=== PATIENT | male | born 1950 | race Caucasian/White ===

== ENCOUNTER 2018-08-27 07:04 | Emergency (ER) | payer OTHER ==
--- NOTE | 2018-08-27 07:06 | PDOC ---
History of Present Illness - General Chief Complaint: Injury Stated Complaint: LT SHOULDER PAIN Time Seen by Provider: 08/27/18 07:05 - History of Present Illness Initial Comments: 08/27/18 07:15 68yo male with pmhx of anxiety/depression/bph presents ambulatory for eval of L shoulder pain. States he was out walking on the track this morning for exercise when it started to rain. He was walking home to get out of the rain when he tripped on an uneven side walk landing on his R palm and L shoulder. Pt states the fall happened about 45 min prior to arrival. Pt denies head injury. No neck or back pain. Pt ambulated into the ED for eval. Pt denies hip, knee, or ankle/ foot pain. 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 States pain with ROM. Pt with abrasion to palm of R hand. Tetanus is utd. Pt denies barlow. No blurred vision. No weakness. No paresthesias. No cp/sob. No abd pain. No n/v/d. No blood thinners. No other complaints. Pmhx: anxiety, depression, bph Pshx: hernia repair allergies: nkda Past History - Past Medical History Allergies/Adverse Reactions: Allergies Allergy/AdvReac Type Severity Reaction Status Date / Time No Known Allergies Allergy Verified 07/16/14 15:22 Home Medications: Ambulatory Orders Bupropion HCl [Wellbutrin Xl -] 300 mg PO DAILY 05/25/11 Citalopram Hydrobromide [Celexa -] 10 mg PO DAILY 05/25/11 Clonazepam [Klonopin] 1 mg PO BID 05/25/11 Finasteride [Proscar -] 5 mg PO HS 05/25/11 Fluticasone Prop 0.05% Nasal [Flonase -] 1 drop NS DAILY PRN 05/25/11 Tamsulosin HCl [Flomax -] 0.4 mg PO HS 05/25/11 Cholecalciferol (Vitamin D3) [Vitamin D3] 3,000 unit PO DAILY 07/16/14 Folic Acid/Mv,Fe,Min [Centrum Multivitamin Tab Chew] 1 each PO DAILY 07/16/14 [place]-3 Fatty Acids/Fish Oil [Fish Oil 1,000 mg Softgel] 3 each PO DAILY Plant Stanol Wanda [Cholest Off] 2 tab PO BID 07/16/14 Oxycodone HCl/Acetaminophen [Percocet 5-325 mg Tablet] 1 tab PO Q6H PRN #15 tablet MDD 4 tabs 08/27/18 Anemia: No Asthma: No Cancer: No Cardiac Disorders: No CVA: No COPD: No CHF: No Dementia: No Diabetes: No GI Disorders: Yes (POSSIBLE FAMILY H/O COLON CA) Disorders: Yes (BPH) HTN: No Hypercholesterolemia: No Liver Disease: No Seizures: No Thyroid Disease: No - Surgical History Abdominal Surgery: Yes (DOUBLE HERNIA AT 2 Y/O) Appendectomy: No Cardiac Surgery: No Cholecystectomy: No Lung Surgery: No Neurologic Surgery: No Orthopedic Surgery: No - Suicide/Smoking/Psychosocial Hx Smoking History: Never smoked Have you smoked in the past 12 months: No Hx Alcohol Use: No Drug/Substance Use Hx: No Substance Use Type: None Hx Substance Use Treatment: No Review of Systems - Review of Systems Able to Perform ROS?: Yes Is the patient limited [place] proficient: No Constitutional: No: Chills, Fever HEENTM: No: Eye Pain, Blurred Vision, Nose Congestion, Throat Pain Respiratory: No: Cough, Shortness of Breath Cardiac (ROS): No: Chest Pain, Lightheadedness, Palpitations ABD/GI: No: Diarrhea, Nausea, Vomiting, Abdominal cramping : No: Burning, Dysuria Musculoskeletal: Yes: Joint Pain, Muscle Pain, Other (L shoulder pain). No: Back Pain, Neck Pain Integumentary: Yes: Other (abrasion to palm of R hand) All Other Systems: Reviewed and Negative *Physical Exam - Vital Signs 08/27/18 07:21 Selected Entries 08/27/18 07:07 Temperature 98.7 F Pulse Rate 82 Respiratory 16 Rate Blood Pressure 143/92 Blood Pressure 109 Mean O2 Sat by Pulse 96 Oximetry (%) Weight 72.575 kg - Physical Exam General Appearance: Yes: Nourished, Appropriately Dressed HEENT: positive: EOMI, Normal Voice Neck: positive: Trachea midline, Supple. negative: Tender midline Respiratory/Chest: positive: Lungs Clear, Normal Breath Sounds. negative: Chest Tender, Respiratory Distress Cardiovascular: positive: Regular Rhythm, Regular Rate, S1, S2. negative: Edema Gastrointestinal/Abdominal: positive: Normal Bowel Sounds, Flat, Soft. negative : Tender Musculoskeletal: positive: Decreased Range of Motion (L shoulder with active ROM , FROM with passive rom, ttp across the top to the front of the shoulder, no deformity palpated), Other (no ttp over clavicle or chest wall, no vertebral ttp/step offs or deformities, muscle strength 5/5 UE, sensation intact, brisk cap refill, radial pulses intact b/l, limited rom with abduction and extension) . negative: Vertebral Tenderness Extremity: positive: Normal Capillary Refill, Other (pelvis stable, no ttp LE). 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 is controlled -neurovasc intact 08/27/18 07:51 xray shows proximal humerus fracture pt placed in a sling discussed follow up with orthopedics answered all questions will give percocet rx for pain control discussed all reasons to return to the ED *DC/Admit/Observation/Transfer Diagnosis at time of Disposition: Fracture, humerus - Discharge Dispostion Disposition: HOME Condition at time of disposition: Stable Decision to Admit order: No - Prescriptions Prescriptions: Oxycodone HCl/Acetaminophen [Percocet 5-325 mg Tablet] 1 tab PO Q6H PRN #15 tablet MDD 4 tabs PRN Reason: Pain - Referrals Referrals: Mat Aviles MD [Staff Physician] - Holden Rashid DO [Staff Physician] - Dmitriy Britt MD [Staff Physician] - - Patient Instructions Printed Discharge Instructions: How to Use a Sling Additional Instructions: Please use the sling and keep the arm elevated. Please call and make an appointment to see the orthopedist for further evaluation of the broken arm. Please apply ice to the arm - 20 min on and 20 min off as tolerated to reduce the swelling. Please take all medications as prescribed. Please also follow up with your PMD. Please return to the ED with any further concerns or complaints. - Post Discharge Activity - Attestations Physician Attestion: 08/27/18 07:29 I, Dr. Sunita Jarvis, DO, attest that this document has been prepared under my direction and personally reviewed by me in its entirety. I further attest, that it accurately reflects all work, treatment, procedures and medical decision -making performed by me.
[2018-08-27 07:11] VITALS: BP 143/92; PULSE 82; TEMP 98.7; BMI 22.9
== END 2018-08-27 08:10 | disposition home or self-care (01) ==
LOC: FER 07:04
DX: S42.292A Other displaced fracture of upper end of left humerus, initial encounter for closed fracture (principal); S60.511A Abrasion of right hand, initial encounter; W01.0XXA Fall on same level from slipping, tripping and stumbling without subsequent striking against object, initial encounter; Y93.02 Activity, running; Y92.480 Sidewalk as the place of occurrence of the external cause; Y99.8 Other external cause status; F41.8 Other specified anxiety disorders; F32.9 Major depressive disorder, single episode, unspecified; N40.0 Benign prostatic hyperplasia without lower urinary tract symptoms
CPT/HCPCS: 73030-TC-LT-FY; 99282-25

== ENCOUNTER 2021-09-17 08:05 | Day surgery (SDC) | payer OTHER ==
[2021-09-15 14:59] VITALS: BMI 23.6
[2021-09-17 09:54] VITALS: TEMP 98
[2021-09-17 09:56] VITALS: BP 121/74; PULSE 80
== END 2021-09-17 10:26 | disposition home or self-care (01) ==
LOC: FASU-ENDO 08:05
PROVIDERS: ATTEND Internal Medicine Gastroenterology
PROC: 0DBN8ZX Excision of Sigmoid Colon, Via Natural or Artificial Opening Endoscopic, Diagnostic (ICD-10-PCS; 2021-09-17)
PROC: 0DBM8ZX Excision of Descending Colon, Via Natural or Artificial Opening Endoscopic, Diagnostic (ICD-10-PCS; 2021-09-17)
PROC: 0DBH8ZX Excision of Cecum, Via Natural or Artificial Opening Endoscopic, Diagnostic (ICD-10-PCS; principal; 2021-09-17 09:13)
DX: Z86.010 Personal history of colon polyps (principal); D12.0 Benign neoplasm of cecum; D12.4 Benign neoplasm of descending colon; D12.5 Benign neoplasm of sigmoid colon; Z80.0 Family history of malignant neoplasm of digestive organs
CPT/HCPCS: 88305-TC